=== PATIENT | male | born 2000 | race Caucasian/White ===

== ENCOUNTER 2023-07-20 09:06 | Emergency (ER) | payer OTHER, BC, SELFPAY ==
[2023-07-20 09:08] VITALS: BP 148/94; PULSE 72; RESP 14; TEMP 36.3; O2SAT 100; BMI 24.4
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
[2023-07-20 09:40] VITALS: O2SAT 98
== END 2023-07-20 10:04 | disposition home or self-care (01) ==
LOC: ED 09:57
PROVIDERS: Emergency Provider Emergency Medicine; Visit Provider Emergency Medicine
DX: S23.3XXA Sprain of ligaments of thoracic spine, initial encounter (principal); M99.02 Segmental and somatic dysfunction of thoracic region; V89.2XXA Person injured in unspecified motor-vehicle accident, traffic, initial encounter
CPT/HCPCS: 99282